=== PATIENT | female | born 2000 | race Caucasian/White ===

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

== ENCOUNTER 2019-12-17 13:56 | Outpatient (CLI) | payer OTHER | END 2019-12-17 16:32 | disposition home or self-care (01) | LOC: OFIC 805 13:56 | PROVIDERS: ATTEND Otolaryngology | DX: H90.3 Sensorineural hearing loss, bilateral (principal); H61.23 Impacted cerumen, bilateral; T78.49XA Other allergy, initial encounter; J30.89 Other allergic rhinitis; J32.8 Other chronic sinusitis ==

== ENCOUNTER 2020-02-05 14:02 | Outpatient (CLI) | payer OTHER | END 2020-02-05 14:41 | disposition home or self-care (01) | LOC: RAD 14:02 | PROVIDERS: ATTEND Family Medicine | DX: M54.5 Low back pain (principal) ==

== ENCOUNTER → 2020-05-16 | Outpatient (CLI) | payer OTHER | END | disposition home or self-care (01) | LOC: OFIC 805 10:06 | PROVIDERS: ATTEND Otolaryngology | DX: J30.89 Other allergic rhinitis (principal); H61.23 Impacted cerumen, bilateral; J34.3 Hypertrophy of nasal turbinates; H90.3 Sensorineural hearing loss, bilateral ==

== ENCOUNTER → 2020-08-03 | Outpatient (CLI) | payer OTHER | END | disposition home or self-care (01) | LOC: OFIC 805 01-14 13:15 → RAD 15:26 | DX: J20.8 Acute bronchitis due to other specified organisms (principal) ==

== ENCOUNTER 2020-10-04 15:31 | Outpatient (CLI) | payer OTHER | END 2020-10-04 16:04 | disposition home or self-care (01) | LOC: OFIC 805 15:31 | PROVIDERS: ATTEND Otolaryngology Otology & Neurotology | DX: H61.393 Other acquired stenosis of external ear canal, bilateral (principal); J30.89 Other allergic rhinitis; H61.23 Impacted cerumen, bilateral ==

== ENCOUNTER 2022-06-04 12:36 | Outpatient (CLI) | payer OTHER | END 2022-06-04 12:45 | disposition home or self-care (01) | LOC: SONOGRAMA 12:36 | PROVIDERS: ATTEND Family Medicine | DX: R22.1 Localized swelling, mass and lump, neck (principal) ==

== ENCOUNTER 2022-09-05 09:53 | Outpatient (CLI) | payer OTHER | END 2022-09-05 10:07 | disposition home or self-care (01) | LOC: TOM 09:53 | PROVIDERS: ATTEND Family Medicine | DX: R22.1 Localized swelling, mass and lump, neck (principal) ==